=== PATIENT | male | born 1945 | race Caucasian/White ===

== ENCOUNTER → 2016-08-20 | Outpatient (CLI) | payer BC ==
[2016-08-20 14:01] LABS: BLOOD UREA NITROGEN 13 mg/dl (7-18); BUN/CREATININE RATIO 11.2 (10-20); CALCIUM 9.3 mg/dl (8.5-10.1); CARBON DIOXIDE 31 mmol/L (21-32); CHLORIDE 107 mmol/L (98-107); GLUCOSE 80 mg/dl (70-99); POTASSIUM 4.6 mmol/L (3.5-5.1); SODIUM 143 mmol/L (136-145)
[2016-08-20 14:06] LABS: CHOLESTEROL 176 mg/dl (0-200); CHOLESTEROL/HDL RATIO 3.5; HDL CHOLESTEROL 51 mg/dl; LDL CHOLESTEROL CALCULATED 102 mg/dl; TRIGLYCERIDES 116 mg/dl (0-150); VERY LOW DENSITY LIPOPROT CALC 23 mg/dl
== END | disposition home or self-care (01) ==
LOC: C.LABBC 09:42
PROVIDERS: ATTEND Internal Medicine
DX: E78.5 Hyperlipidemia, unspecified (principal); Z12.5 Encounter for screening for malignant neoplasm of prostate

== ENCOUNTER → 2017-08-09 | Outpatient (CLI) | payer BC ==
[2017-08-09 14:27] LABS: ALT/SGPT 21 U/L (12-78); AST/SGOT 19 U/L (15-37); BLOOD UREA NITROGEN 15 mg/dl (7-18); CALCIUM 9.6 mg/dl (8.5-10.1); CARBON DIOXIDE 26 mmol/L (21-32); CHOLESTEROL 196 mg/dl (0-200); CREATININE 1.18 mg/dl (0.60-1.40); GLUCOSE 90 mg/dl (70-99); POTASSIUM 4.2 mmol/L (3.5-5.1); SODIUM 138 mmol/L (136-145)
[2017-08-09 14:34] LABS: LDL CHOLESTEROL CALCULATED 124 mg/dl
== END | disposition home or self-care (01) ==
LOC: C.LABBC 09:08
PROVIDERS: ATTEND Internal Medicine
DX: Z12.5 Encounter for screening for malignant neoplasm of prostate (principal); E78.5 Hyperlipidemia, unspecified

== ENCOUNTER 2025-02-26 15:14 | Inpatient (IN) ==
--- NOTE | 2025-02-26 16:10 | XRay Report ---
KUB CLINICAL HISTORY: Constipation. COMPARISON STUDY: None. FINDINGS: Cardiomegaly, small bilateral pleural effusions and bibasilar opacities are partially image d. The bowel gas pattern is normal. There is no radiographic evidence for a bowel obstruction. The am ount of stool is within normal limits. IMPRESSION: 1. No evidence for a bowel obstruction. 2. Amount of stool within normal limits. 3. Cardiomegaly with small bilateral pleural effusions and associated bibasilar opacities. ACT 112: Negative or not required by law. Electronically signed by: Fidel Berry M.D. 02/26/2025 4:08 PM
--- NOTE | 2025-02-26 16:15 | Emergency Department Note ---
Impression & Plan Elevated troponin, Cardiomyopathy, Hyponatremia ED Provider Note NAME: ANA MARÍA DOYLE AGE: 79 SEX: M : 1945 ARRIVES VIA: Walk-In INFORMANT: Patient, ED PROVIDER(S): Ed Corrigan MD CHIEF COMPLAINT: Constipation, fatigue MEDICAL DECISION MAKING: Patient presents primarily due to concern for constipation but also with fatigue. KUB was ordered no evidence of obvious bowel obstruction stool noted. Patient was ordered some lactulose. Patient was ordered blood work and IV fluids along with an EKG. Labs also ordered along with TSH. EKG did show slight elevation in lead III but not in contiguous leads and given the patient's fatigability a troponin was ordered. Patient denies any chest pains or shortness of breath. Patient with a normal white count with a normal hemoglobin and platelet count. Kidney function unremarkable. Hyponatremic at 126 and the patient's troponin of 58. Patient's TSH was elevated but free T4 is normal. Urinalysis does not show evidence of obvious infection. Lyme's negative. Given the patient's positive troponin fatigability did believe the patient would benefit from admission. I did send the EKGs to Dr. Draper as the repeat EKG appeared more pronounced and the patient was still without any chest pain. After discussion he is not overly concerned and thinks this is more LVH with repolarization. Review does show that the patient has had prior heart failure and was recommended for further evaluation but declined. I did speak the on-call hospitalist service Dr. Gaffney and the patient was admitted to the medicine service. Discussion w/ other healthcare providers: Dr. Gaffney inpatient medicine service Dr. Draper cardiology Prior /Outside records reviewed: None Differential diagnosis: Infection, dehydration, metabolic abnormality, hypo/hyperglycemia, electrolyte imbalance, anemia, UTI, pneumonia, thyroid dysfunction among others were considered. Diagnostics, as interpreted by me: ECG: Normal sinus rhythm, rate of 78, normal intervals, normal axis no ST elevations, Q waves noted anteriorly possible depressions noted in the high lateral leads, slight elevation in lead III. Cardiac monitoring: An order was placed for continuous cardiac monitoring. The monitor shows a rate of 76 with sinus rhythm. Patient was placed on pulse oximetry Medical decision rules: None Imaging studies: I informally interpreted the patient's KUB does not show evidence of obvious obstruction with formal report to follow. HPI: Patient presents due to concern for constipation. He reports that the last time that he had a good bowel movement was over the weekend. He did take a laxative magnesium citrate in addition to some prune juice last evening. He states that he had a small bowel movement this morning. Patient's daughter at bedside reports that he has been more fatigable and tired of late. He denies any chest pains or shortness of breath no known tick bites or Lyme's. No history of hypothyroidism. He states that his sleep and appetite have been appropriate. PAST MEDICAL HISTORY: See Below PAST SURGICAL HISTORY: See Below SOCIAL HISTORY: See Below HOME MEDICATIONS: See Below ALLERGIES: See Below VITALS: See Below PHYSICAL EXAMINATION: GENERAL: NAD, non-toxic. EYE EXAM: Normal conjunctiva. PERRL, no anisocoria and EOM's grossly intact w/o pain. OROPHARYNX: Moist mucus membranes, grossly normal dentition. NECK: Trachea midline, no stridor. Supple, no nuchal rigidity, no adenopathy, non-tender. No signs of meningismus. FROM of the neck with good chin to chest and neck extension. LUNGS: Clear to auscultation. Normal chest wall mechanics. HEART: NSR, no MRG. ABDOMEN: Abdomen soft, non-tender, no masses, no rebound or guarding. BACK: No CVA TTP. SKIN: No rashes and no bruising. UPPER EXTREMITIES: Upper extremities are grossly normal. LOWER EXTREMITIES: Grossly normal, left greater than light lower extremities swelling. No calf pain or erythema. NEURO EXAM: Awake and alert, follows commands, no obvious facial asymmetry, normal speech, moves all 4 extremities. Past Med/Surg History Problem List (Updated 02/26/25 @ 23:40 by Ed Corrigan MD) Elevated troponin (Acute) Hyponatremia (Acute) Elevated PSA Inguinal hernia Hyperlipidemia HTN (hypertension) Cardiomyopathy (Acute) Medical History Hypertension no meds, ?white coat syndrome per records, patient denies hypertension Hyperlipidemia no meds-per record History of cardiomyopathy does not follow with cardiology, ECHO 03/2021 Bilateral inguinal hernia Surgical History Hx of bilateral cataract extraction spring 2024 H/O colonoscopy (~2004) History of dental surgery S/P tonsillectomy Family History Mother No pertinent family history Father Myocardial infarction Denies family history of Colon cancer Ovarian cancer Prostate cancer Breast cancer Social History Smoking Status: Never smoker Second Hand Exposure: No; Do You Dip or Chew Tobacco: No; Hx Alcohol Use: Yes Alcohol type: beer and wine Alcohol Intake Frequency: 4 or More x per/Week Hx Substance Use: No Preferred Language: Turkish Communication Ability: Effective Visual Impairment: Limited Hearing Ability: Normal 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 Beliefs That Will Affect Care: None marital status: / Current Living Situation: Alone 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 status: retired 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[employer] How many Children do You have: 3 Feels Safe at Home: Yes Childhood Exposure to Second-Hand Smoke: No Diet: regular during the past year weight has: remained stable Dental Care, Regularly: Yes Physical Activity Frequency: Daily Seatbelt Use: always Sunscreen Use: Yes Assistive Devices: Contacts and Glasses Allergies Allergies Allergy/AdvReac Type Severity Reaction Status Date / Time No Known Drug Allergies Allergy Unknown Verified 02/21/25 13:55 Home Meds Home Medications Medication Instructions Recorded Confirmed aspirin 81 mg tablet 81 mg PO DAILY 12/27/18 02/26/25 magnesium 200 mg tablet 200 mg PO DAILY 12/27/18 02/26/25 multivitamin (Daily Multi-Vitamin 1 tab PO DAILY 12/27/18 02/26/25 tablet) Previous Rx's Medication Instructions Recorded atorvastatin 40 mg tablet 40 mg PO DAILY #30 tabs 01/15/25 carvedilol 6.25 mg tablet 6.25 mg PO BID #60 tabs 01/15/25 fluticasone propionate 50 1 spray intranasal BID #16 grams 02/21/25 mcg/actuation nasal spray,suspension (Flonase Allergy Relief) Results & Data (ED) Vital Signs Vital Signs - 24 hr 02/26/25 15:29 02/26/25 16:15 02/26/25 17:24 Temperature 36.7 C Temperature Source Temporal Artery Scan Pulse Rate 80 Pulse Rate [Apical] 89 Pulse Rate from SpO2 Sensor Respiratory Rate 18 18 Respiratory Effort / Characteristics Non-Labored Respiratory Depth Normal Respiratory Pattern Regular Blood Pressure 141/95 H Blood Pressure Mean 110 Pulse Oximetry 95 97 96 Oxygen Delivery Method Room Air Room Air Room Air Sepsis Recent Fever Within 48 Hours No Sepsis New/Unexplained Change in Mental Status N/A Sepsis Action Taken by Nursing No Action Required 02/26/25 17:30 02/26/25 17:52 02/26/25 18:00 Temperature Temperature Source Pulse Rate 81 84 84 Pulse Rate [Apical] Pulse Rate from SpO2 Sensor 81 86 Respiratory Rate 17 19 Respiratory Effort / Characteristics Respiratory Depth Respiratory Pattern Blood Pressure 166/97 H 177/113 H Blood Pressure Mean 120 134 Pulse Oximetry 96 96 Oxygen Delivery Method Sepsis Recent Fever Within 48 Hours Sepsis New/Unexplained Change in Mental Status Sepsis Action Taken by Nursing 02/26/25 19:00 Temperature Temperature Source Pulse Rate 85 Pulse Rate [Apical] Pulse Rate from SpO2 Sensor 82 Respiratory Rate 14 Respiratory Effort / Characteristics Respiratory Depth Respiratory Pattern Blood Pressure 172/116 H Blood Pressure Mean 134 Pulse Oximetry 95 Oxygen Delivery Method Sepsis Recent Fever Within 48 Hours Sepsis New/Unexplained Change in Mental Status Sepsis Action Taken by [facility] Medications Current Medication List: was personally reviewed by me Laboratory Data Attestation: I reviewed the patient's lab results. 02/26/25 17:00 02/26/25 17:00 Lab Results 02/26/25 Range/Units 17:00 WBC 6.64 (4.8-10.8) K/ul RBC 4.65 L (4.70-6.10) M/uL Hgb 15.2 (14.0-18.0) g/dL Hct 43.3 (42.0-52.0) % MCV 93.1 (80.0-100.0) fL MCH 32.7 (25.0-34.0) pg MCHC 35.1 (32.0-36.0) g/dL RDW Std Deviation 45.9 (36.4-46.3) fL RDW Coeff of Christina 13.5 (11.5-14.5) % Plt Count 172 (130-400) K/uL MPV 10.1 (9.4-12.4) fL Immature Gran % (Auto) 0.3 % Neut % (Auto) 79.6 % Lymph % (Auto) 9.3 % [place] % (Auto) 9.9 % Eos % (Auto) 0.6 % Baso % (Auto) 0.3 % Neut # (Auto) 5.28 (1.40-6.50) K/uL Lymph # (Auto) 0.62 L (1.20-3.40) K/uL [place] # (Auto) 0.66 H (0.11-0.59) K/uL Eos # (Auto) 0.04 (0.00-0.50) K/uL Baso # (Auto) 0.02 (0.00-0.20) K/uL Immature Gran # (Auto) 0.02 (0.01-0.20) K/uL Sodium 126 L (136-145) mmol/L Potassium 4.6 (3.5-5.1) mmol/L Chloride 91 L (98-107) mmol/L Carbon Dioxide 26 (21-32) mmol/L Anion Gap 9 (3-11) BUN 10 (6-23) mg/dl Creatinine 0.96 (0.6-1.4) mg/dl Est Cr Clr Drug Dosing 57.5 ml/min eGFR 79.41 BUN/Creatinine Ratio 10.4 (10-20) Glucose 119 H (70-99(Fasting)) mg/dl Calcium 9.2 (8.6-10.3) mg/dl Total Bilirubin 0.9 (0.2-1.0) mg/dl AST 30 (13-39) U/L ALT 31 (7-52) U/L Alkaline Phosphatase 83 (34-104) U/L Troponin I High Sens 58.0 H* (0-20) pg/ml Total Protein 6.6 (6.0-8.3) gm/dl Albumin 4.0 (3.4-5.0) gm/dl Globulin 2.6 (2.5-4.0) gm/dl Albumin/Globulin Ratio 1.5 (0.9-2) TSH 7.689 H (0.300-4.500) uIu/ml Free T4 0.92 (0.61-1.60) ng/dl Lyme Disease Screen Negative (Negative) Administered Medications Fluticasone Propionate (Fluticasone Propionate Na Spr 16 Gm Btl) 1 sprays LESLY BID CLARICE Stop: 03/28/25 22:15 Last Admin: 02/26/25 23:01 Dose: Not Given Documented By: [facility] Discontinued Medications Aspirin (Aspirin Chew 324 Mg) 324 mg PO NOW STA Stop: 02/26/25 18:34 Last Admin: 02/26/25 18:48 Dose: 324 mg Documented By: [id number] Sodium Chloride (Nss) 1,000 mls @ 999 mls/hr IV .Q1H1M CLARICE Stop: 02/26/25 18:15 Last Infusion: 02/26/25 18:36 Dose: Infused Documented By: [id number] Admin: 02/26/25 17:10 Dose: 999 mls/hr Documented By: [id number] Lactulose (Lactulose Syrup 20 Gm/30 Ml Udc) 30 gm PO NOW STA Stop: 02/26/25 17:03 Last Admin: 02/26/25 17:10 Dose: 30 gm Documented By: [id number] Imaging Data Radiologist's Impression: KUB X-Ray 02/26/25 15:26 KUB CLINICAL HISTORY: Constipation. COMPARISON STUDY: None. FINDINGS: Cardiomegaly, small bilateral pleural effusions and bibasilar opacities are partially imaged. The bowel gas pattern is normal. There is no radiographic evidence for a bowel obstruction. The amount of stool is within normal limits. IMPRESSION: 1. No evidence for a bowel obstruction. 2. Amount of stool within normal limits. 3. Cardiomegaly with small bilateral pleural effusions and associated bibasilar opacities. ACT 112: Negative or not required by law. Electronically signed by: Fidel Berry M.D. 02/26/2025 4:08 PM Chest X-Ray 02/26/25 19:06 Chest radiograph, one view History: Chest pain Comparison: None Findings: Single AP view of the chest performed. There are small bilateral pleural effusions. A faint area of opacity measuring approximately 2.5 cm is seen in the right lower lung.. No pneumothorax. The cardiomediastinal silhouette is within normal limits. Prominent pulmonary vascularity. No evidence for lymphadenopathy. No visualized bony or soft tissue abnormality. Impression: Small bilateral pleural effusions. Subtle right lower lobe opacity may represent infection. Electronically signed by Nakul John 02-26-2025 8:51 PM Discharge Plan Visit Data Chief Complaint: Constipation Stated Complaint: CONSTIPATION ED Provider: Ed Corrigan Discharge Problem: Elevated troponin, Cardiomyopathy, Hyponatremia Patient Disposition: Admitted As Inpatient Condition: Good Discharge Instructions Interventions: ED Discharge Assessment Last Done: 02/26/25 21:39 Discharge Problem: Cardiomyopathy Qualifiers: Cardiomyopathy type: unspecified Qualified Code(s): I42.9 - Cardiomyopathy, unspecified
[2025-02-26] MEDS: LACTULOSE SYRUP 20 GM/30 ML UDC PO STA (17:10)
[2025-02-26] MEDS: SODIUM CHLORIDE 0.9% 1,000 ML IV SCH (17:10)
[2025-02-26 17:12] LABS: Hematocrit (blood only) 43.3 % (42.0-52.0); Hemoglobin 15.2 g/dL (14.0-18.0); Immature Granulocytes # (auto) 0.02 K/uL (0.01-0.20); Immature Granulocytes % (auto) 0.3 %; Mean Corpuscular Hemoglobin 32.7 pg (25.0-34.0); Mean Corpuscular Volume 93.1 fL (80.0-100.0); Platelet Count 172 K/uL (130-400); RDW Standard Deviation 45.9 fL (36.4-46.3); Red Blood Count 4.65 M/uL (4.70-6.10); White Blood Count 6.64 K/ul (4.8-10.8)
[2025-02-26 17:29] LABS: Alanine Aminotransferase 31.0 U/L (7-52); Albumin Globulin Ratio 1.5 (0.9-2); Albumin Level 4.0 gm/dl (3.4-5.0); Alkaline Phosphatase 83.0 U/L (34-104); Anion Gap 9.0 (3-11); Bilirubin,Total 0.9 mg/dl (0.2-1.0); Blood Urea Nitrogen 10.0 mg/dl (6-23); Calcium 9.2 mg/dl (8.6-10.3); Carbon Dioxide 26.0 mmol/L (21-32); Chloride 91.0 mmol/L (98-107); Creatinine Clr Calc Pharmacy 57.5 ml/min; Globulin 2.6 gm/dl (2.5-4.0); Glucose 119.0 mg/dl (70-99(Fasting)); Potassium 4.6 mmol/L (3.5-5.1); Sodium 126.0 mmol/L (136-145); Total Protein 6.6 gm/dl (6.0-8.3)
[2025-02-26 17:43] LABS: Thyroid Stimulating Hormone 7.689 uIu/ml (0.300-4.500)
[2025-02-26 18:18] LABS: T4 Free Thyroxine 0.92 ng/dl (0.61-1.60)
[2025-02-26] MEDS: ASPIRIN CHEW 324 MG PO STA (18:48)
--- NOTE | 2025-02-26 19:13 | History & Physical Report ---
Date of Service February 26, 2025 Assessment & Plan (1) Hyponatremia: (2) Cardiomyopathy: (3) HTN (hypertension): (4) Elevated troponin: Plan 79 year old male with presumed ischemic cardiomyopathy presents to the ER with constipation and found to have hyponatremia and elevated troponin #Hyponatremia Unclear cause on admission as despite cardiomyopathy with mild pleural effusions which appear new since CT chest from 2019 he is not overtly overloaded and 1L NSS bolus given in the ER has not significant changed his symptoms On no medications to cause this Will get serum osm, urine osm, urine Na, BNP and CXR to better assess causation For now will just assess the effect of NSS given in the ER with AM labs #Elevated troponin Does not appear to be consistent with NSTEMI. Perhaps LVH. Given known cardiomyopathy will repeat TTE #Presumed ischemic cardiomyopathy / CAD Although carvedilol on list of medications he is no longer on this due to side effects. I would consider trial of metoprolol succinate low dose daily though to see if this improves his ejection fraction although no acute need to start this. No longer taking atorvastatin either - again consider restarting in step garcia manner as outpatient Continue aspirin #Constipation Continue MiraLAX 17g daily VTE Prophylaxis - low risk, notably left lower extremity swelling is longstanding Disposition - admit to med/tele Admission and Anticipated Discharge Date Admission Date: February 26, 2025 History of Present Illness Chief Complaint: Constipation Primary Care Provider: Richard Hwang MD Jann Alvarez is an 79 year old male who presents to the ER with constipation. He reports not being able to have a bowel movement for the last 3 days and usually he goes everyday. He has tried milk of magnesia at home without effect. No abdominal pain, nausea or vomiting. Labs in the emergency room were notable for hyponatremia and elevated troponin. He denies any shortness of breath, chest pain, orthopnea, paroxysmal nocturnal dyspnea or worsening leg swelling. He feels he had a upper respiratory illness and nasal congestion 2 weeks ago but feels he is improving from this - notably saw his PCP on February 21 for this. He reports walking 3 miles a day which he last did a few days ago without any issues. He has known cardiomyopathy presumed ischemic based on wall motion abnormalities on 2020 echocardiogram and densely calcified coronary arteries on prior CT chest in 2018. He had a recent pre-operative evaluation done by cardiology due to these prior findings and was started on atorvastatin and carvedilol but stopped them after a week as he was more dizzy with less exercise tolerance. No prior known heart attack. Allergies Allergy/AdvReac Type Severity Reaction Status Date / Time No Known Drug Allergies Allergy Unknown Verified 02/21/25 13:55 Home Medications Medication Instructions Recorded Confirmed Type aspirin 81 mg tablet 81 mg PO DAILY 12/27/18 02/26/25 History magnesium 200 mg tablet 200 mg PO DAILY 12/27/18 02/26/25 History multivitamin (Daily Multi-Vitamin 1 tab PO DAILY 12/27/18 02/26/25 History tablet) atorvastatin 40 mg tablet 40 mg PO DAILY #30 tabs 01/15/25 02/26/25 Rx carvedilol 6.25 mg tablet 6.25 mg PO BID #60 tabs 01/15/25 02/26/25 Rx fluticasone propionate 50 1 spray intranasal BID #16 grams 02/21/25 02/26/25 Rx mcg/actuation nasal spray,suspension (Flonase Allergy Relief) Past Med/Surg History Problem List (Updated 02/26/25 @ 20:52 by Veto Gaffney MD) Elevated troponin Hyponatremia Elevated PSA Inguinal hernia Hyperlipidemia HTN (hypertension) Cardiomyopathy (Acute) Medical History Bilateral inguinal hernia History of cardiomyopathy does not follow with cardiology, ECHO 03/2021 Hyperlipidemia no meds-per record Hypertension no meds, ?white coat syndrome per records, patient denies hypertension Surgical History Hx of bilateral cataract extraction H/O colonoscopy (~2004) History of dental surgery S/P tonsillectomy Family History Mother No pertinent family history Father Myocardial infarction Denies family history of Colon cancer Ovarian cancer Prostate cancer Breast cancer Social History Smoking Status: Never smoker Second Hand Exposure: No; Do You Dip or Chew Tobacco: No; Hx Alcohol Use: Yes Alcohol type: beer and wine Alcohol Intake Frequency: 4 or More x per/Week Hx Substance Use: No Preferred Language: Malay Communication Ability: Effective Visual Impairment: Limited Hearing Ability: Normal Reroller Hand Required: No Beliefs That Will Affect Care: None marital status: / Current Living Situation: Alone 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 status: 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 How many Children do You have: 3 Feels Safe at Home: Yes Childhood Exposure to Second-Hand Smoke: No Diet: regular during the past year weight has: remained stable Dental Care, Regularly: Yes Physical Activity Frequency: Daily Seatbelt Use: always Sunscreen Use: Yes Assistive Devices: Contacts and Glasses Review of Systems Review of Systems: All systems reviewed & are unremarkable except as noted in HPI & below Physical Exam Constitutional: well developed and well nourished; no acute distress Respiratory: normal respiratory effort; no respiratory distress Auscultation: + diminished lung sounds (bibasal); no crackles, no rales and no rhonchi Cardiovascular: Rate/Rhythm: regular rate and regular rhythm Heart Sounds: no murmur Extremities: normal capillary refill and + pedal edema (1+ left sided calf larger than right trace edema); no calf tenderness Gastrointestinal (Abdomen): normal bowel sounds, soft, nontender, no hepatosplenomegaly Musculoskeletal: no cyanosis or clubbing, extremities motor strength 5/5 Skin: no rashes, warm and dry (chronic b/l venous stasis changes) Neurologic: moves all extremities and awake; not confused Psychiatric: A+Ox3, euthymic affect Results & Data Results & Data Vital Signs (Past 12 Hours) Vital Signs Temp Pulse Pulse Resp BP Pulse Ox O2 Del Method 02/26/25 17:52 84 02/26/25 17:24 96 Room Air 02/26/25 16:15 89 18 97 Room Air 02/26/25 15:29 36.7 C 80 18 141/95 H 95 Room Air Laboratory Results Abnormal lab results 02/26/25 02/26/25 Range/Units 17:00 19:28 RBC 4.65 L (4.70-6.10) M/uL Lymph # (Auto) 0.62 L (1.20-3.40) K/uL [place]wey # (Auto) 0.66 H (0.11-0.59) K/uL Sodium 126 L (136-145) mmol/L Chloride 91 L (98-107) mmol/L Glucose 119 H (70-99(Fasting)) mg/dl Osmolality 275 L (280-300) mOsm/kg Troponin I High Sens 58.0 H* 47.8 H D (0-20) pg/ml B-Natriuretic Peptide 1418 H (0-100) pg/ml TSH 7.689 H (0.300-4.500) uIu/ml Diagnostic Findings KUB CLINICAL HISTORY: Constipation. COMPARISON STUDY: None. FINDINGS: Cardiomegaly, small bilateral pleural effusions and bibasilar opacities are partially imaged. The bowel gas pattern is normal. There is no radiographic evidence for a bowel obstruction. The amount of stool is within normal limits. IMPRESSION: 1. No evidence for a bowel obstruction. 2. Amount of stool within normal limits. 3. Cardiomegaly with small bilateral pleural effusions and associated bibasilar opacities. Medications Administered ER Medications Given: Normal saline 1000ml bolus Lactulose 30g PO Aspirin 324mg PO ECG Rate (beats per minute): 78 Rhythm: normal sinus Findings: + other (Left ventricular hypertrophy with repolarization abnormality) Comparison ECG Date: from (December 11, 2024) Change: no significant change Code Status & VTE Plan Code Status Full VTE Prophylaxis Plan VTE Prophylaxis will be ordered: No PG Care Time/CCT Total # of Minutes Spent Total Time Spent with Patient: Total time spent is greater than 50% in coordination of care (as documented) at patient's floor/unit and/or counseling patient: Coding Level of Care Code 32077 INT INP/OBS CARE 3/75MIN Diagnoses Hyponatremia E87.1 Ischemic cardiomyopathy I25.5 Cardiomyopathy type: ischemic HTN (hypertension) I10 Elevated troponin R79.89 (2) Cardiomyopathy Cardiomyopathy type: ischemic Qualified Code(s): I25.5 - Ischemic cardiomyopathy
[2025-02-26 20:41] LABS: Appearance Urine Clear (Clear); Glucose Urine UA Negative (Negative)
--- NOTE | 2025-02-26 20:52 | XRay Report ---
Chest radiograph, one view History: Chest pain Comparison: None Findings: Single AP view of the chest performed. There are small bilateral pleural effusions. A faint area of opacity measuring approximately 2.5 cm is seen in the right lower lung.. No pneumothorax. The cardiomediastinal silhouette is within normal limits. Prominent pulmonary vascularity. No evidence for lymphadenopathy. No visualized bony or soft tissue abnormality. Impression: Small bilateral pleural effusions. Subtle right lower lobe opacity may represent infection. Electronically signed by Nakul John 02-26-2025 8:51 PM
[2025-02-26] MEDS: FLUTICASONE PROPIONATE NA SPR 16 GM BTL NAE SCH (23:01)
[2025-02-26] MEDS: MELATONIN 3 MG TAB PO PRN (23:38)
[2025-02-27 01:03] VITALS: RESP 16
[2025-02-27 07:49] VITALS: O2SAT 96
[2025-02-27] MEDS ORDERED: ASPIRIN 81 MG ECTAB PO SCH (09:00)
[2025-02-27] MEDS: OPTIRAY 320 100ml IV ONE (09:19)
--- NOTE | 2025-02-27 10:04 | CT Scan Report ---
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 A dose lowering technique was utilized adhering to the principles of ALARA. COMPARISON: Chest radiograph 02/26/2025, CTA chest 05/09/2018 FINDINGS: No dominant thyroid nodule. Moderate cardiomegaly with extensive coronary artery calcificat ions. No pericardial effusion. There is atherosclerosis of the aorta without aneurysm or dissection. There is patency of the imaged great vessels. High-grade stenosis at the origin of the superior mesen teric artery with mild stenosis at the origin of the celiac trunk. There is at least moderate stenosi s at the origin of the renal arteries. Main pulmonary artery measures up to 3.1 cm transversely sugge stive of pulmonary arterial hypertension. No pulmonary emboli are seen. There are a few borderline-en larged mediastinal and hilar lymph nodes. Small to moderate pleural effusions. No pneumothorax. Intralobular septal thickening with mild depend ent bibasilar consolidation. 8 mm nodular focus in the right lower lobe on image 149 prior. Central a irways are patent. No acute upper abdominal abnormality. Mild generalized body wall edema. No acute f racture or suspicious bony lesion. Degenerative loose bodies are noted within the right glenohumeral joint and subscapularis recess. IMPRESSION: 1. Cardiomegaly with mild interstitial pulmonary edema, [id number] layering pleural effusions and anasarca. 2. Dependent bibasilar consolidation suggestive of atelectasis. 3. 8 mm nodular focus of the right lower lobe, new from 2019. Follow-up guidelines listed below. 4. 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 Please refer to below summary of Fleischner criteria recommendations for follow-up of incidental CT n odules (Dharmesh Sifuentes, Guidelines for management of small pulmonary nodules detected on CT scans: A sta tement from the Fleischner Society, Radiology 237: [phone].) SOLID NODULES Solitary nodule size: 6-8 mm * Low risk patients: follow-up at 6-12 months, then consider further follow-up at 18-24 months * high risk patients: initial follow-up CT at 6-12 months and then at 18-24 months if no change Solitary nodule size: >8 mm * either low or high risk patients - consider follow-up CT at 3 months, and/or CT-PET, and/or biopsy Note: newly detected indeterminate nodule in persons 35 years of age or older. * Low risk patients: minimal or absent history of smoking and/or other known risk factors * high risk patients: history of smoking or of other known risk factors (e.g. first degree relative with lung cancer, or exposure to asbestos, radon, uranium) * if a nodule up to 8 mm is partly solid or is ground glass further follow-up is required after 24 m onths to exclude possible slow growing adenocarcinoma (BRISA) The above report was generated using voice recognition software. It may contain grammatical, syntax o r spelling errors. ACT 112: Negative or not required by law. Electronically signed by: Anthony Giles M.D. 02/27/2025 10:02 AM
[2025-02-27 10:15] LABS: Hematocrit (blood only) 41.6 % (42.0-52.0); Hemoglobin 14.3 g/dL (14.0-18.0); Mean Corpuscular Hemoglobin 32.5 pg (25.0-34.0); Mean Corpuscular Volume 94.5 fL (80.0-100.0); Platelet Count 174 K/uL (130-400); RDW Standard Deviation 47.9 fL (36.4-46.3); Red Blood Count 4.40 M/uL (4.70-6.10); White Blood Count 5.93 K/ul (4.8-10.8)
[2025-02-27 10:29] LABS: Anion Gap 4.0 (3-11); Blood Urea Nitrogen 9.0 mg/dl (6-23); Calcium 9.1 mg/dl (8.6-10.3); Carbon Dioxide 30.0 mmol/L (21-32); Chloride 96.0 mmol/L (98-107); Creatinine Clr Calc Pharmacy 59.3 ml/min; Glucose 100.0 mg/dl (70-99(Fasting)); Potassium 4.4 mmol/L (3.5-5.1); Sodium 130.0 mmol/L (136-145)
[2025-02-27] MEDS: POLYETHYLENE (MIRALAX) 17 GM PACK PO SCH (10:29)
[2025-02-27 10:38] LABS: INR 1.1 (0.9-1.1); Prothrombin Time 11.9 Seconds (9.0-12.0)
--- NOTE | 2025-02-27 11:32 | XCELERA ---
[id number]
[2025-02-27 11:49] VITALS: BP 167/104; PULSE 78; TEMP 97.5
[2025-02-27] MEDS: ASPIRIN 81 MG ECTAB PO STA (14:39)
[2025-02-27] MEDS: METOPROLOL SUCC 25MG EXT REL TAB PO STA (14:39)
[2025-02-27] MEDS: INFLUENZA VACC TS2025-26(65y+)/PF (IIV3) 0.5mL Syr IM ONE (14:59)
--- NOTE | 2025-02-28 09:34 | Electrocardiogram Report ---
Test Reason : Blood Pressure : */* mmHG Vent. Rate : 78 BPM Atrial Rate : 78 BPM P-R Int : 168 ms QRS Dur : 106 ms QT Int : 394 ms P-R-T Axes : 15 -1 86 degrees QTcB Int : 449 ms Normal sinus rhythm Left ventricular hypertrophy with repolarization abnormality ( R in aVL , [place] product ) Possible Lateral infarct , age undetermined Abnormal ECG When compared with ECG of 11-Dec-2024 09:52, Premature ventricular complexes are no longer Present Questionable change in QRS axis Confirmed by Mika Hua ([id number]) on 02/28/2025 9:34:20 AM Referred By: REFERRED SELF Confirmed By: Mika Hua
--- NOTE | 2025-02-28 09:36 | Electrocardiogram Report ---
Test Reason : Blood Pressure : */* mmHG Vent. Rate : 88 BPM Atrial Rate : 88 BPM P-R Int : 180 ms QRS Dur : 110 ms QT Int : 366 ms P-R-T Axes : 41 7 141 degrees QTcB Int : 442 ms Normal sinus rhythm Incomplete left bundle block Left ventricular hypertrophy with repolarization abnormality ( [place] product ) Abnormal ECG When compared with ECG of 26-Feb-2025 17:13, (unconfirmed) T wave inversion more evident in Lateral leads Confirmed by Mika Hua ([id number]) on 02/28/2025 9:36:11 AM Referred By: REFERRED SELF Confirmed By: Mika Hua
== END 2025-02-27 15:31 | disposition home or self-care (01) | DRG 644 ==
LOC: ED 15:14 → 2N 19:08